=== PATIENT | male | born 1975 | race Caucasian/White ===

== ENCOUNTER 2016-09-19 07:24 | Day surgery (SDC) ==
[2016-09-17 09:05] LABS: HEMATOCRIT 44.3 % (42.0-52.0); HEMOGLOBIN 15.2 g/dL (14.0-18.0); MCH 31.3 PG (27-31); MCHC 34.3 g/dL (33-37); MCV 91.3 FL (81-99); MPV 10.8 FL (7.4-10.4); RBC 4.85 XMIL (4.7-6.1)
--- NOTE | 2016-09-17 11:16 | EKG Report ---
Test Performed on : 09/17/2016 08:54:11 AM Test Reason : PAT Blood Pressure : / mmHG Vent. Rate : 050 BPM Atrial Rate : 050 BPM P-R Int : 130 ms QRS Dur : 106 ms QT Int : 412 ms P-R-T Axes : 005 021 009 degrees QTc Int : 375 ms Sinus bradycardia. Otherwise normal ECG No previous ECGs available Confirmed by Miah TOSCANO, Mike Hammer ([id number]) on 09/17/2016 5:24:07 PM
[2016-09-19] MEDS ORDERED: REGLAN ONE ×2 (07:55→08:21)
[2016-09-19] MEDS ORDERED: PEPCID ONE (07:55)
[2016-09-19] MEDS ORDERED: KEFZOL 1 GM/D5W 50 ML ONE (07:55)
[2016-09-19] MEDS ORDERED: LR 1,000 ML ONE ×3 (07:56→15:54)
[2016-09-19] MEDS ORDERED: MARCAINE 0.25% PF/EPI 1:200,000 ONE (10:10)
[2016-09-19] MEDS ORDERED: VERSED ONE (12:40)
[2016-09-19] MEDS ORDERED: FENTANYL ONE (12:40)
[2016-09-19] MEDS ORDERED: DIPRIVAN 1% ONE (12:41)
[2016-09-19] MEDS: MORPHINE ONE ×4 (12:49→13:10)
[2016-09-19] MEDS ORDERED: LR 500 ML ONE ×2 (12:59→15:16)
--- NOTE | 2016-09-19 13:28 | OPERATIVE NOTE ---
PROCEDURE DATE: 09/19/2016 PROCEDURE: Robotic transperineal bilateral inguinal hernia repair with ProGrip mesh and excision of lipoma of the cord bilaterally. SURGEON: Jose Flores MD PIG MACHINE OPERATOR HELPER: Farzana. PREOPERATIVE DIAGNOSIS: Bilateral inguinal hernia. POSTOPERATIVE DIAGNOSIS: Bilateral indirect inguinal hernia with bilateral lipomas of the cord. DESCRIPTION OF PROCEDURE: Satisfactory general endotracheal anesthesia was achieved, the patient placed in Mike stirrups. The abdomen was prepped and draped in a sterile fashion. We anesthetized the skin in the epigastrium made a vertical incision, dissected down the fascia, scored the fascia, introduced the 12 trocar into the abdominal cavity with Optiview technique. We then went lateral, slightly inferior, and placed an 8 robotic trocar on both sides. We placed the patient in Trendelenburg and then docked the robot between the legs. I had marked the anterior iliac spine in order to locate the area inside, where I would make my incision. Both indirect hernias were identified after I sat at the console. We then incised the peritoneum from the right side to the middle, the middle to the left side, up always from the hernia sac out of the inguinal canals. We did this on the left side because that was a larger side. Dissected down first to Poupart's ligament medially and then laterally and dividing the areolar tissue. We then approached the cord structures. We grasped the lipoma on the lateral side and dissected it away from the cord structures. We then dissected the hernia sac on the anteromedial aspect way down into the canal and brought it back until it could be reduced into the abdominal cavity. We identified the cord structures satisfactorily. We then did exactly the same procedure on the right side removing the lipoma and reducing the hernia sac off the anteromedial aspect of the cord structures. We then obtained appropriate mesh for the left. It was folded down twice in up once and introduced into the abdominal cavity. We then positioned the transition line of the mesh at the inguinal ligament and unfolded it inferiorly x1 and then superiorly x2. We felt we had good coverage of the inguinal canal. We then did exactly the same thing on the right side. After these were positioned appropriately, we then introduced the 2-0 V-Loc suture and sutured the left side first from lateral to medial, then the right side from medial to lateral. The lipomas had been placed in the abdominal cavity where we could retrieve them later. Both needles were removed. I then scrubbed back in. We undocked the robot. We switched to the videolaparoscope, I then introduced the grasper through the low 12 trocar, grasped the 2 lipomas and delivered them out of the abdominal cavity through the 12 trocar site. We then passed our 2-0 Polysorb suture through the abdominal wall to close the defect at the robot trocar sites. We desufflated and closed the fascia at the epigastric trocar site under direct visualization using a 2-0 Polysorb. The skin was then closed with 4-0 Polysorb subcuticular stitches. Sterile OpSite were applied. He tolerated it well, was sent to the recovery room in satisfactory condition.
[2016-09-19] MEDS: NORCO-10 PO PRN ×2 (13:42→16:50)
[2016-09-19] MEDS ORDERED: NEOSTIGMINE ONE (15:14)
[2016-09-19] MEDS ORDERED: ZOFRAN ONE (15:14)
[2016-09-19] MEDS ORDERED: NORCURON ONE (15:15)
[2016-09-19] MEDS ORDERED: OFIRMEV 1000 MG/ISOTONIC SOLN 100 ML ONE (15:15)
[2016-09-19] MEDS ORDERED: ROBINUL ONE (15:15)
[2016-09-19] MEDS ORDERED: XYLOCAINE-MPF 2% ONE (15:15)
[2016-09-19] MEDS ORDERED: QUELICIN (DOSE) ONE (15:15)
[2016-09-19] MEDS ORDERED: DECADRON ONE (15:15)
[2016-09-19] MEDS ORDERED: STERILE WATER INJ. ONE (15:15)
[2016-09-19] MEDS ORDERED: NORCO-10 ONE (16:48)
[2016-09-19] MEDS ORDERED: NUBAIN IV ONE (17:00)
[2016-09-19] MEDS: ZOFRAN IV PRN (19:54)
[2016-09-20] MEDS: ZOFRAN IV PRN ×2 (00:07→07:49)
[2016-09-20] MEDS: NORCO-10 PO PRN ×2 (02:30→07:49)
[2016-09-20] MEDS ORDERED: PROTONIX PO SCH (07:00)
[2016-09-20 07:58] VITALS: BP 125/78
[2016-09-20] MEDS ORDERED: PRINIVIL PO SCH (09:00)
== END 2016-09-20 08:50 | disposition home or self-care (01) ==
LOC: OR 07:24 → UNDOADMOB 17:59 → 4N 17:59 → UNDODISOB 09-20 08:50 → OR 09-20 08:50
PROVIDERS: ATTEND Surgery
DX: K40.20 Bilateral inguinal hernia, without obstruction or gangrene, not specified as recurrent (principal); D17.6 Benign lipomatous neoplasm of spermatic cord; I10 Essential (primary) hypertension; K21.9 Gastro-esophageal reflux disease without esophagitis
CPT/HCPCS: 85027; 88304; 93005; 93010; C1781; J0131; J0330; J0690; J1100; J2250; J2270; J2300; J2405; J3010; J7120; J2710